=== PATIENT | female | born 1995 | race Caucasian/White ===

== ENCOUNTER 2018-06-15 15:33 | Emergency (ER) | payer OTHER ==
[2018-06-15 15:56] VITALS: BP 129/76
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
== END 2018-06-15 16:25 | disposition home or self-care (01) ==
LOC: UCCORT 15:33
DX: R51 Headache (principal); W51.XXXA Accidental striking against or bumped into by another person, initial encounter; Y93.89 Activity, other specified; Y92.89 Other specified places as the place of occurrence of the external cause
CPT/HCPCS: 99201; G0463